=== PATIENT | male | born 1995 | race Caucasian/White ===

== ENCOUNTER 2020-01-19 00:44 | Emergency (ER) | payer OTHER ==
[~2020-01-19] VITALS: Ht 193 cm; Wt 81.6 kg
[2020-01-19 00:46] VITALS: Ht 193 cm; Wt 81.6 kg
[2020-01-19 01:33] VITALS: BP 145/73
== END 2020-01-19 01:33 | disposition other institution (70) ==
LOC: ED 00:44
DX: Z02.89 Encounter for other administrative examinations (principal)
CPT/HCPCS: 84439; G0480